=== PATIENT | female | born 1980 | race Hispanic/Latino ===

== ENCOUNTER 2017-08-11 10:11 | Inpatient (IN) | payer MEDICAID, OTHER, SELFPAY ==
[2017-08-11 10:47] VITALS: BMI 32.5
[2017-08-11] MEDS ORDERED: Promethazine HCl 25 MG/ML VIAL IM PRN (10:59)
[2017-08-11] MEDS ORDERED: Ondansetron HCl/PF 4 MG/2 ML Vial IVP PRN (10:59)
[2017-08-11] MEDS ORDERED: Acetaminophen 500 MG TAB PO PRN (10:59)
[2017-08-11] MEDS ORDERED: Lidocaine 1% (PF) 30 ML VIAL SC PRN (11:02)
[2017-08-11] MEDS ORDERED: Ibuprofen 800 MG TAB PO PRN (11:02)
[2017-08-11] MEDS ORDERED: NS / Oxytocin 40 units/1000ml 1,000 ML IV PRN (11:02)
[2017-08-11] MEDS: Lactated Ringer's 1,000 ML IV SCH ×2 (11:16→22:27)
--- NOTE | 2017-08-11 11:17 | PDOC.EVN ---
Event Note - Event Note Event Note: HISTORY AND PHYSICAL at 1110 Patient has handwritten H&P in chart. Please see scanned note Assessment and plan: 37 yo at term, GBS negative, no prior CS, admitted at 5-6cm/90/-1/BOWI/ Cephalic. FHTs wnl. CTX Q3-5 min. Admit for labor care. No issues noted outside of age of [address]. [address] Geller out, [facility] covering.
[2017-08-11] MEDS: NS / Oxytocin 40 units/1000ml 1,000 ML IV SCH ×2 (11:35→15:12)
[2017-08-11 11:44] LABS: Hemoglobin 14.1 g/dL (12.0-16.0); Mean Corpuscular HGB CONC 33.7 g/dL (32.0-36.0); Mean Corpuscular Hemoglobin 30.7 pg (27.0-31.0); Mean Corpuscular Volume 91.2 fl (81.0-99.0); Mean Platelet Volume 9.6 fL (7.4-10.4); Platelet Count 147 thou/uL (130-400); RBC Distribution Width 12.4 % (11.5-14.5); White Blood Cell (WBC) Count 12.6 thou/uL (4.8-10.8)
[2017-08-11] MEDS ORDERED: Bupivacaine 0.5% 20 ML, fentaNYL Citrate/PF 400 MCG in Sodium Chloride 0.9% 72 ML EPIDURAL SCH (11:45)
[2017-08-11] MEDS ORDERED: DISCONTINUE ALL PREVIOUS NARCOTICS FS SCH (11:45)
[2017-08-11 12:16] LABS: HBSAg Index 0.11 S/CO (0-0.99); Hep B Surf Ag Non-Reactive S/CO (NonReactive); Syphilis Antibody Nonreactive (Nonreactive); Syphilis Antibody Index 0.04 S/CO (<1.00 Non-Reactive)
--- NOTE | 2017-08-11 12:46 | PDOC.OPDEL ---
OB Operative/Delivery Note Delivery Dr/Surgeon: Angelique Johnson/Serg Assist: Serg Pre-Delivery Diagnosis: active labor, other (Term, multip.) Procedure/Post Delivery Dx: spontaneous vaginal delivery Weeks gestation: 38 - Findings A - 1 min: 8 - 5 min: 9 - Additional Findings/Plan Placenta delivered: spontaneous (elias) Estimated blood loss: 300 Compilations/Other Findings: Counts correct No repair No lacs Local lidocaine poured on external perineum after placental delivery for local pain reduction DR Johnson arrived first as I was attending to another patient in L&D. I arrived shortly after she did, after baby delivery. Baby was born vigorous without NC. No complications noted Placenta spont delivered within 3 minutes after baby. Post delivery plan: routine recovery (Patient also has handwritten Delivery note )
[2017-08-11] MEDS ORDERED: diphenhydrAMINE 25 MG CAP PO PRN (12:47)
[2017-08-11] MEDS ORDERED: Milk Of Magnesia 30 ML UDCUP PO PRN (12:47)
[2017-08-11] MEDS ORDERED: Benzocaine/Menthol 20-0.5% 60 ML CAN TOP PRN (12:47)
[2017-08-11] MEDS ORDERED: Acetaminophen/Codeine 30-300mg Tablet PO PRN ×2 (12:47)
[2017-08-11] MEDS ORDERED: Bisacodyl 10 MG SUPP PR PRN (12:47)
[2017-08-11] MEDS ORDERED: Preparation H Ointment 28 GM TUBE PR PRN (12:47)
[2017-08-11] MEDS ORDERED: Lidocaine 1% (PF) 30 ML VIAL ONE (13:24)
[2017-08-11] MEDS: Ibuprofen 800 MG TAB PO SCH ×2 (13:37→22:11)
[2017-08-11] MEDS: Ferrous Sulfate 325 MG TAB PO SCH (16:55)
[2017-08-11] MEDS: Docusate Calcium (SURFAK) 240 MG CAP PO SCH (22:11)
[2017-08-12] MEDS: Lactated Ringer's 1,000 ML IV SCH (01:21)
--- NOTE | 2017-08-12 02:25 | PDOC.PP ---
Post Progress Note Post Day #: 1 PO intake tolerated: yes Flatus: yes Ambulation: yes Vital Signs (12 hours) Temp Pulse Resp BP 08/12/17 00:00 99.1 F 69 16 106/59 L 08/11/17 20:00 99.1 F 64 16 105/58 L 08/11/17 17:25 98.2 F 64 20 109/54 L 08/11/17 15:30 98.2 F 64 20 08/11/17 15:20 98.6 F 76 18 117/46 L Weight Weight 172 lb - Physical Examination General: NAD Cardiovascular: no m/r/g Abdominal: + bowel sounds Extremities: negative homans (B) Neurological: no gross focal deficits Psychiatric: A&Ox3, normal affect Result Diagrams: 08/11/17 11:16 Additional Labs: Post Labs Blood Type B POSITIVE 08/11/17 11:16 Hep Bs Antigen Non-Reactive S/CO (NonReactive) 08/11/17 11:16 (1) Vaginal delivery Code(s): O80 - ENCOUNTER FOR FULL-TERM UNCOMPLICATED DELIVERY Status: Acute - Assessment/Plan Plan: Doing well. OK for noon discharge. Breasting. Motrin prn
[2017-08-12 04:36] VITALS: BP 96/50; TEMP 98.9
[2017-08-12] MEDS: Ibuprofen 800 MG TAB PO SCH ×2 (05:20→14:19)
[2017-08-12 05:24] LABS: Mean Corpuscular HGB CONC 33.2 g/dL (32.0-36.0); Mean Corpuscular Hemoglobin 30.7 pg (27.0-31.0); Mean Corpuscular Volume 92.6 fl (81.0-99.0); Mean Platelet Volume 9.9 fL (7.4-10.4); Platelet Count 124 thou/uL (130-400); RBC Distribution Width 12.6 % (11.5-14.5)
[2017-08-12] MEDS ORDERED: Measles/Mumps/Rubella 10 MCG/0.5 ML VIAL SC ONE (09:00)
[2017-08-12] MEDS ORDERED: Varicella virus, LIVE 0.5 ML VIAL SC ONE (09:00)
[2017-08-12] MEDS ORDERED: Adacel (T-DAP) 0.5 ML VIAL IM ONE (09:00)
[2017-08-12] MEDS ORDERED: Prenatal Vitamin 1 TAB PO SCH (09:00)
[2017-08-12] MEDS: Ferrous Sulfate 325 MG TAB PO SCH (09:54)
[2017-08-12] MEDS: Docusate Calcium (SURFAK) 240 MG CAP PO SCH (09:55)
== END 2017-08-12 14:30 | disposition home or self-care (01) | DRG 775 ==
LOC: L&D/OP 10:11 → L&D 11:40 → 3SW 15:24
PROVIDERS: ADMIT Obstetrics & Gynecology; ATTEND Student in an Organized Health Care Education/Training Program
PROC: 10E0XZZ Delivery of Products of Conception, External Approach (ICD-10-PCS; principal; 2017-08-11)
DX: O80 Encounter for full-term uncomplicated delivery (principal); Z3A.38 38 weeks gestation of pregnancy; Z37.0 Single live birth
CPT/HCPCS: 36415; 85027; 86780; 86850; 86900; 86901; 87340; 99285; J2001; J3010; J3490; J7050